=== PATIENT | female | born 2000 | race Hispanic/Latino ===

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

== ENCOUNTER 2019-05-17 23:42 | Emergency (ER) | payer OTHER, SELFPAY ==
[~2019-05-17 23:42] MED LIST: Iopamidol-370 76% 500 ML 1 ML ONE
[2019-05-18] MEDS ORDERED: Adacel (T-DAP) 0.5 ML SYRINGE ONE (00:03)
[2019-05-18] MEDS ORDERED: Fentanyl 100 MCG/2 ML VIAL ONE (00:03)
[2019-05-18 00:25] LABS: #Eosinphils 0.2 thou/uL (0.0-0.7); #Lymphocytes 2.1 thou/uL (1.20-3.40); #Monocytes 0.7 thou/uL (0.11-0.59); %Basophils 0.4 % (0.0-1.0); %Eosinophils 2.3 % (0.0-10.0); %Lymphocytes 26.5 % (28.0-48.0); %Monocytes 8.5 % (0.0-4.0); %Neutrophils 62.3 % (31.0-61.0); Hemoglobin 14.8 g/dL (12.0-16.0); Mean Corpuscular Hemoglobin 30.9 pg (25.0-35.0); Mean Corpuscular Volume 90.9 fL (78.0-98.0); Mean Platelet Volume 8.2 fL (7.4-10.4); Platelet Count 239 thou/uL (130-400); RBC Distribution Width 11.9 % (11.5-14.5); Red Blood Cell (RBC) Count 4.79 mill/uL (4.00-5.20)
[2019-05-18 00:31] LABS: BHCG - Serum Negative (NEGATIVE); Pregs Control Background? CLEAR/WHITE (CLR/WHITE); Pregs Control Bar Appear? YES (CONTROL BAR)
[2019-05-18 00:49] LABS: ALT (SGPT) 18 U/L (8-55); AST (SGOT) 22 U/L (5-30); Albumin 4.4 g/dL (3.5-5.0); Alkaline Phosphatase 124 U/L (40-100); Anion Gap 11 mmol/L (10-20); BUN (Urea Nitrogen) 11 mg/dL (8.4-21.0); Bilirubin, Total 0.4 mg/dL (0.2-1.2); Calc. Creatinine Clearance 0 mL/min (70-130); Carbon Dioxide 26 mmol/L (22-29); Chloride 107 mmol/L (98-107); Estimated GFR-MDRD Greater than 90; Glucose 92 mg/dL (70-105); Potassium 3.9 mmol/L (3.5-5.1); Protein, Total 7.4 g/dL (6.0-8.3); Sodium 140 mmol/L (136-145)
[2019-05-18] MEDS ORDERED: Morphine 4 MG/ML VIAL ONE (01:35)
--- NOTE | 2019-05-18 08:02 | CT ---
PRELIMINARY REPORT/[facility]/EMERGENCY AFTER HOURS PROCEDURE: PROCEDURE INFORMATION: Exam: CT Head Without Contrast Exam date and time: 05/18/2019 1:03 AM Clinical history: 18 years old, female; Injury or trauma; Initial encounter; Abrasion; Not specified; Patient HX: Er 14. Fall from 6-7 carpeted stairs onto tile floor; Pos loc, loc 20 minutes TECHNIQUE: Imaging protocol: Computed tomography of the head without contrast. COMPARISON: No relevant prior studies available. FINDINGS: Brain: No acute intracranial hemorrhage or mass effect. No definite acute infarct by CT. Ventricles: Ventricle size is normal for age. Bones/joints: No definite acute skull fracture. Sinuses: Included paranasal sinuses are essentially clear. Mastoid air cells: No significant acute finding. IMPRESSION: 1. No acute intracranial hemorrhage or mass effect. 2. Other findings discussed above. Thank you for allowing us to participate in the care of your patient. Dictated and Authenticated by: Rafael Montes De Oca MD 05/18/2019 1:27 AM Central Time ([place] & [place]) FINAL REPORT HEAD CT WITHOUT CONTRAST: HISTORY: Trauma. Pain. Injury. FINDINGS: This report is in agreement with the preliminary report by [facility]. No intracranial posttraumatic sequel ae. POS: [facility]
--- NOTE | 2019-05-18 08:19 | CT ---
PRELIMINARY REPORT/[facility]/EMERGENCY AFTER HOURS PROCEDURE: PROCEDURE INFORMATION: Exam: CT Cervical Spine Without Contrast Exam date and time: 05/18/2019 1:02 AM Clinical history: 18 years old, female; Injury or trauma; Initial encounter; Abrasion; Patient HX: Er 14. Fall from 6-7 carpeted stairs onto tile floor; Pos loc, loc 20 minutes TECHNIQUE: Imaging protocol: Computed tomography images of the cervical spine without contrast. COMPARISON: No relevant prior studies available. FINDINGS: Vertebrae: On axial CT images, no definite acute fracture is visible. Sagittal and coronal reconstruc tions show no fracture or subluxation. Discs/Spinal canal/Neural foramina: No definite/significant disc herniation by CT, MRI could be more sensitive if clinically indicated. Lungs: No significant acute abnormality in the upper lungs. IMPRESSION: 1. No definite acute fracture or subluxation by CT. 2. Other findings discussed above. Thank you for allowing us to participate in the care of your patient. Dictated and Authenticated by: Rafael Montes De Oca MD 05/18/2019 1:32 AM Central Time ([place] & [place]) FINAL REPORT CT CERVICAL SPINE WITHOUT CONTRAST: COMPARISON: 03/16/2018. HISTORY: Fall. FINDINGS: This report is in agreement with the preliminary report by [facility]. No evidence of fracture or dislocati on. POS: [facility]
--- NOTE | 2019-05-18 08:55 | RAD ---
Exam:3 views right shoulder HISTORY: Trauma. Pain. Fall. COMPARISON: None FINDINGS: Glenohumeral joint space is preserved. No fracture or dislocation. Visualized right ribs ar e unremarkable. IMPRESSION: No fracture.
--- NOTE | 2019-05-18 08:55 | RAD ---
Exam:3 views right ankle HISTORY: Pain. Trauma. COMPARISON: 08/13/2012 FINDINGS: No fracture, cortical irregularity or periosteal reaction. Joint spaces are preserved. Age- appropriate growth plates. No significant soft tissue swelling. IMPRESSION: No fracture.
--- NOTE | 2019-05-18 08:56 | RAD ---
Exam:Right knee 4 views HISTORY: Pain. Fall. Trauma. COMPARISON: None FINDINGS: Joint spaces are preserved. No joint effusion. No fracture or malalignment. IMPRESSION: No fracture.
--- NOTE | 2019-05-18 10:32 | CT ---
PRELIMINARY REPORT/[facility]/EMERGENCY AFTER HOURS PROCEDURE: PROCEDURE INFORMATION: Exam: CT Chest With Contrast Exam date and time: 05/18/2019 1:06 AM Clinical history: 18 years old, female; Injury or trauma; Initial encounter; Abrasion; Patient HX: Er 14. Fall from 6-7 carpeted stairs onto tile floor; Pos loc, loc 20 minutes TECHNIQUE: Imaging protocol: Computed tomography of the chest with intravenous contrast. COMPARISON: No relevant prior studies available. FINDINGS: Lungs: No significant parenchymal lung opacity or mass. Pleural space: No pleural fluid/blood. No pneumothorax. Heart: No significant pericardial effusion. Mediastinum: No evidence for pneumomediastinum. No evidence of mediastinal hematoma. Aorta: No definite thoracic aortic injury by CT. Lymph nodes: Couple of borderline prominent axillary lymph nodes bilaterally. Bones/joints: No definite acute fracture visible by CT. Sagittal and coronal reconstructions of the t horacic spine show no definite acute compression deformity or subluxation. Soft tissues: No significant acute abnormality. IMPRESSION: 1. No definite acute traumatic injury. 2. No pneumothorax. 3. No pleural fluid/blood. 4. Other findings discussed above. 5. Please see subsequent CT Abdomen/Pelvis report for evaluation of the abdomen and pelvis. Thank you for allowing us to participate in the care of your patient. Dictated and Authenticated by: Rafael Montes De Oca MD 05/18/2019 1:52 AM Central Time ([place] & [place]) FINAL REPORT CHEST CT WITH CONTRAST ABDOMEN CT WITH CONTRAST PELVIC CT WITH CONTRAST LIMITED CT THORACIC AND LUMBAR SPINE: HISTORY: The patient fell. Posttraumatic pain. FINDINGS: This report is in agreement with the preliminary report by [facility]. No posttraumatic change of the chest , abdomen, or pelvis. Additional findings as detailed in the preliminary report by [facility]. POS: [facility]
== END 2019-05-18 03:50 | disposition home or self-care (01) ==
LOC: ERS 23:42
DX: S00.03XA Contusion of scalp, initial encounter (principal); S80.812A Abrasion, left lower leg, initial encounter; S80.811A Abrasion, right lower leg, initial encounter; F41.9 Anxiety disorder, unspecified; F41.0 Panic disorder [episodic paroxysmal anxiety]; W10.9XXA Fall (on) (from) unspecified stairs and steps, initial encounter
CPT/HCPCS: 36415; 70450; 71260; 72125; 74177; 80053; 84703; 85025; 90471; 90715; 96361; 96374; 96375; J2270; J3010; Q9967

== ENCOUNTER 2019-09-13 17:06 | Emergency (ER) | payer BC, SELFPAY ==
[~2019-09-13 17:06] MED LIST changes: +Iopamidol 370 76% 100 ML VIAL ONE; -Iopamidol-370 76% 500 ML 1 ML ONE
[2019-09-13 17:39] LABS: #Basophils 0.1 thou/uL (0.0-0.2); #Eosinphils 0.1 thou/uL (0.0-0.7); #Lymphocytes 2.6 thou/uL (1.20-3.40); #Monocytes 0.5 thou/uL (0.11-0.59); #Neutrophils 4.9 thou/uL (1.40-6.50); %Basophils 0.7 % (0.0-1.0); %Eosinophils 1.5 % (0.0-10.0); %Lymphocytes 31.6 % (28.0-48.0); %Monocytes 6.4 % (0.0-4.0); %Neutrophils 59.9 % (31.0-61.0); Hemoglobin 13.6 g/dL (12.0-16.0); Mean Corpuscular HGB CONC 34.6 g/dL (32.0-36.0); Mean Corpuscular Hemoglobin 30.9 pg (25.0-35.0); Mean Corpuscular Volume 89.2 fL (78.0-98.0); Mean Platelet Volume 7.8 fL (7.4-10.4); Platelet Count 243 thou/uL (130-400); White Blood Cell (WBC) Count 8.2 thou/uL (4.8-10.8)
[2019-09-13] MEDS ORDERED: Ketorolac Tromethamine 30 MG/ML VIAL ONE (17:42)
[2019-09-13] MEDS ORDERED: Ondansetron PF 4 MG/2 ML Vial ONE (17:42)
[2019-09-13] MEDS ORDERED: Morphine 4 MG/ML VIAL ONE (17:42)
[2019-09-13] MEDS ORDERED: Acetaminophen 500 MG TAB ONE (17:42)
--- NOTE | 2019-09-13 17:52 | RAD ---
Portable frontal chest radiograph: 09/13/2019 COMPARISON: 10/23/2017 HISTORY: Pain FINDINGS: Lungs are clear. Heart and mediastinal contours appear within normal limits. IMPRESSION: No acute findings.
[2019-09-13 17:53] LABS: BHCG - Serum Negative (NEGATIVE); Pregs Control Background? CLEAR/WHITE (CLR/WHITE); Pregs Control Bar Appear? YES (CONTROL BAR)
--- NOTE | 2019-09-13 17:53 | RAD ---
4 views left knee: 09/13/2019 COMPARISON: None HISTORY: Injury, trauma, pain FINDINGS: There are eccentric lesions of mixed sclerosis and lucency involving the distal femoral sha ft and proximal tibial shaft suggesting fibroxanthomata. No knee joint effusion. No displaced fracture or evidence of dislocation. IMPRESSION: No acute findings. Incidental findings as detailed above.
[2019-09-13 18:01] LABS: ALT (SGPT) 16 U/L (8-55); AST (SGOT) 20 U/L (5-30); Albumin 4.1 g/dL (3.5-5.0); Alkaline Phosphatase 118 U/L (40-100); Anion Gap 13 mmol/L (10-20); BUN (Urea Nitrogen) 10 mg/dL (8.4-21.0); Bilirubin, Total 0.4 mg/dL (0.2-1.2); Calc. Creatinine Clearance 0 mL/min (70-130); Carbon Dioxide 23 mmol/L (22-29); Chloride 107 mmol/L (98-107); Estimated GFR-MDRD Greater than 90; Glucose 84 mg/dL (70-105); Potassium 3.6 mmol/L (3.5-5.1); Protein, Total 7.1 g/dL (6.0-8.3); Sodium 139 mmol/L (136-145)
--- NOTE | 2019-09-13 18:25 | CT ---
Head CT without contrast 09/13/2019: Comparison: None HISTORY: Injury, trauma, pain TECHNIQUE: Axial CT imaging at 5 mm intervals from vertex through skull base without contrast FINDINGS: The imaged paranasal sinuses/mastoid air cells are well aerated. No displaced calvarial fra cture. No intracranial hemorrhage, midline shift, mass effect, or ventricular enlargement. IMPRESSION: No intracranial hemorrhage or displaced calvarial fracture.
--- NOTE | 2019-09-13 18:30 | CT ---
CT of thecervical spine: 09/13/2019 COMPARISON:05/18/2019 HISTORY:Injury, trauma, pain TECHNIQUE: Serial axial CT imaging at2.5 mm intervals from theskull base through lung apices without contrast. Coronal and sagittal reformatted imaging obtained Findings:The visualized lung apices are unremarkable. The dens, occipital condyles, C1 ring, atlantoaxial interspace, craniocervical junction, and cervicot horacic junction appear intact. There is straightening of the normal cervical lordosis. Cervical vertebral body height and alignment appears normal. No prevertebral soft tissue swelling. No displaced fracture or evidence of dislocation is seen. Impression:No acute osseous abnormality.
--- NOTE | 2019-09-13 18:39 | CT ---
CT of abdomen, pelvis, and lumbar spine: 09/13/2019 COMPARISON: None HISTORY: Injury, trauma, pain TECHNIQUE: Axial CT imaging at 5 mm intervals from lung bases through pubic symphysis with IV contras t. Coronal and sagittal reformatted imaging of the abdomen, pelvis, and lumbar spine provided. FINDINGS: The visualized lung bases appear grossly unremarkable. No free intraperitoneal air or fluid is seen. The liver, spleen, gallbladder, pancreas, adrenal glands, and kidneys demonstrate no acute findings. Limited evaluation of the bowel without oral contrast media demonstrates no inflammatory change or evidence of obstruction. The vascular structures of the abdomen/pelvis appear patent. No abdominal or pelvic lymphadenopathy. Extraspinal osseous structures of the abdomen/pelvis demonstrate no acute findings. Neither hip is di slocated. Inferior and superior pubic rami appear intact bilaterally. The pubic symphysis and bilateral sacroiliac joints appear grossly unremarkable. No sacral fracture noted. There is distention of the urinary bladder. Lumbar vertebral body height and alignment appears within normal limits. No acute lumbar spine fractu re or dislocation IMPRESSION: No acute findings.
== END 2019-09-13 19:40 | disposition home or self-care (01) ==
LOC: ERS 17:06
DX: S06.0X0A Concussion without loss of consciousness, initial encounter (principal); S80.02XA Contusion of left knee, initial encounter; F41.9 Anxiety disorder, unspecified; V89.2XXA Person injured in unspecified motor-vehicle accident, traffic, initial encounter
CPT/HCPCS: 36415; 70450; 71045; 72125; 74177; 80053; 84703; 85025; 96361; 96374; 96375; J1885; J2270; J2405; Q9967

== ENCOUNTER 2020-01-07 12:37 | Emergency (ER) | payer BC, OTHER ==
[2020-01-08 14:32] LABS: SARS-CoV-2 MS2 Positive; SARS-CoV-2 N Gene Positive; SARS-CoV-2 S Gene Positive; SARS-CoV-2 orf1ab Positive
== END 2020-01-07 13:25 | disposition home or self-care (01) ==
LOC: ERS 12:37
DX: U07.1 COVID-19 (principal); F41.0 Panic disorder [episodic paroxysmal anxiety]
CPT/HCPCS: 87635; 99283; U0003

== ENCOUNTER 2020-03-25 10:11 | Emergency (ER) | payer BC, OTHER ==
[2020-03-25 11:07] LABS: BHCG - Serum Negative (NEGATIVE); Pregs Control Background? CLEAR/WHITE (CLR/WHITE); Pregs Control Bar Appear? YES (CONTROL BAR)
--- NOTE | 2020-03-25 11:36 | RAD ---
RIGHT KNEE 4 VIEWS: Date: 03/25/2020 INDICATION: History of fall with right knee pain. COMPARISON: 05/18/2019. FINDINGS: No acute fracture or subluxation is evident. No joint capsular distention is evident. No appreciable change is seen from comparison dated 05/18/2019. IMPRESSION: No acute osseous abnormality. POS: [facility]
--- NOTE | 2020-03-25 11:52 | CT ---
Head CT without contrast 03/25/2020: COMPARISON: 09/13/2019 HISTORY: Seizures following a fall, loss of consciousness TECHNIQUE: Axial CT imaging at 5 mm intervals from vertex through skull base without contrast FINDINGS: The visualized paranasal sinuses and mastoid air cells are well-aerated. No displaced geovanny rial fracture. No intracranial hemorrhage, midline shift, mass effect, or ventricular enlargement. IMPRESSION: No acute findings.
--- NOTE | 2020-03-25 11:58 | CT ---
CT of thecervical spine: 03/25/2020 COMPARISON:09/13/2019 HISTORY:Injury, trauma, pain TECHNIQUE: Serial axial CT imaging at2.5 mm intervals from theskull base through the lung apices with out contrast. Coronal and sagittal reformatted imaging obtained Findings:The C1 ring, occipital condyles, dens, C1-2 articulation, craniocervical junction, and cervi cothoracic junction demonstrate no acute findings. Cervical vertebral body height and alignment appears within normal limits. No prevertebral soft tissue swelling. No acute fracture or dislocation. The visualized lung apices appear unremarkable. Impression:No acute findings.
--- NOTE | 2020-03-25 12:07 | CT ---
CT of thelumbar spine: 03/25/2020 COMPARISON:06/27/2016 HISTORY:Injury, pain, fall TECHNIQUE: Serial axial CT imaging at2.5 mm intervals from thelower thoracic spine through lower sacr um without contrast. Coronal and sagittal reformatted imaging obtained Findings:Limited assessment of the retroperitoneal structures demonstrates no acute findings. Small c yst/dominant follicle in the left adnexal/ovarian region measures 1.6 cm. Evaluation for central canal and/or neural foraminal stenosis is limited on routine CT. There is partial sacralization of the L5 vertebral body on the left with a left-sided L5-S1 assimilat ion joint. Lumbar vertebral body height and alignment appears within normal limits. There is no osseous cause of significant central canal or neural foraminal stenosis within the lumbar spine. No acute lumbar spine fracture or dislocation is seen. Impression:No acute osseous abnormality.
[2020-03-25] MEDS ORDERED: Ketorolac Tromethamine 30 MG/ML VIAL ONE (12:25)
== END 2020-03-25 12:36 | disposition home or self-care (01) ==
LOC: ERS 10:11
DX: S06.9X1A Unspecified intracranial injury with loss of consciousness of 30 minutes or less, initial encounter (principal); M54.5 Low back pain; M54.2 Cervicalgia; M25.561 Pain in right knee; W10.9XXA Fall (on) (from) unspecified stairs and steps, initial encounter
CPT/HCPCS: 36415; 70450; 72125; 72131; 84703; 96374; J1885

== ENCOUNTER 2020-04-02 12:55 | Emergency (ER) | payer BC, OTHER ==
[2020-04-03 12:07] LABS: SARS-CoV-2 MS2 Positive; SARS-CoV-2 N Gene Negative; SARS-CoV-2 S Gene Negative; SARS-CoV-2 by NAA Not Detected (NotDetected); SARS-CoV-2 orf1ab Negative
== END 2020-04-02 13:38 | disposition home or self-care (01) ==
LOC: ERS 12:55
DX: J02.9 Acute pharyngitis, unspecified (principal); Z20.828 Contact with and (suspected) exposure to other viral communicable diseases
CPT/HCPCS: 87081; 87430; 87635; 99283; U0003

== ENCOUNTER 2020-06-14 10:11 | Observation (INO) | payer BC ==
[~2020-06-14 10:11] MED LIST changes: -Iopamidol 370 76% 100 ML VIAL ONE; +Iopamidol-370 76% 500 ML 1 ML ONE
[2020-06-14 10:58] LABS: #Basophils 0.1 thou/uL (0.0-0.2); #Eosinphils 0.3 thou/uL (0.0-0.7); #Lymphocytes 2.7 thou/uL (1.20-3.40); #Monocytes 0.6 thou/uL (0.11-0.59); #Neutrophils 4.4 thou/uL (1.40-6.50); %Basophils 0.7 % (0.0-1.0); %Eosinophils 4.1 % (0.0-10.0); %Lymphocytes 33.8 % (28.0-48.0); %Monocytes 6.8 % (0.0-4.0); %Neutrophils 54.7 % (31.0-61.0); Hemoglobin 14.7 g/dL (12.0-16.0); Mean Corpuscular HGB CONC 33.7 g/dL (32.0-36.0); Mean Corpuscular Hemoglobin 29.5 pg (25.0-35.0); Mean Corpuscular Volume 87.6 fL (78.0-98.0); Mean Platelet Volume 7.6 fL (7.4-10.4); Platelet Count 270 thou/uL (130-400); RBC Distribution Width 12.3 % (11.5-14.5); Red Blood Cell (RBC) Count 4.99 mill/uL (4.00-5.20); White Blood Cell (WBC) Count 8.1 thou/uL (4.8-10.8)
[2020-06-14 11:06] LABS: Bilirubin Negative (Negative); Blood, Urine 1+ (Negative); Clarity Clear (Clear); Glucose, Urine (Dipstick) Normal (Negative); Ketone, Urine Negative (Negative); Leukocyte Negative Leu/uL (Negative); Nitrite Negative (Negative); Protein, Urine (Dipstick) Negative (Neg-Trace); RBC/HPF 0-3 HPF (0-3); Specific Gravity, Urine 1.011 (1.002-1.036); Squamous Epithelial 0-3 HPF (0-3); Urobilinogen Normal mg/dL (Less than 2); WBC/HPF 0-3 HPF (0-3)
[2020-06-14 11:07] LABS: Bacteria/HPF Rare-Few HPF (None Seen)
[2020-06-14 11:22] LABS: ALT (SGPT) 22 U/L (8-55); AST (SGOT) 22 U/L (5-34); Albumin 4.2 g/dL (3.5-5.0); Alkaline Phosphatase 175 U/L (40-100); Anion Gap 14 mmol/L (10-20); BUN (Urea Nitrogen) 11 mg/dL (7.0-18.7); Bilirubin, Total 0.2 mg/dL (0.2-1.2); Calc. Creatinine Clearance 0 mL/min (70-130); Calcium 9.3 mg/dL (7.8-10.44); Carbon Dioxide 27 mmol/L (22-29); Chloride 102 mmol/L (98-107); Globulin 4.1 g/dL (2.4-3.5); Glucose 94 mg/dL (70-105); Protein, Total 8.3 g/dL (6.0-8.3); Sodium 139 mmol/L (136-145)
[2020-06-14 12:09] LABS: BHCG - Serum Negative (NEGATIVE); Pregs Control Background? CLEAR/WHITE (CLR/WHITE); Pregs Control Bar Appear? YES (CONTROL BAR)
[2020-06-14 12:36] LABS: BHCG - Serum Negative (NEGATIVE); Pregs Control Background? CLEAR/WHITE (CLR/WHITE); Pregs Control Bar Appear? YES (CONTROL BAR)
--- NOTE | 2020-06-14 12:38 | CT ---
CTA Angio Chest W WO Con 06/14/2020 12:20 PM Indication: Walking with dizziness Technique: Multiple CTA images were obtained of the thorax with IV contrast. 3-D rendering: MIP chance nstructed images were created and reviewed. Comparison: Prior CT of the chest, abdomen and pelvis dated May 18, 2019 Findings: Pulmonary arteries: No central or segmental pulmonary embolus is evident. Heart and Aorta: Normal appearing. Mediastinum:Normal appearing. No enlarged lymph nodes. Lungs:There are hazy groundglass airspace opacities bilaterally which can be seen with subsegmental v olume loss. Patient does appear to be somewhat hypoventilated Pleural space: Clear. Upper Abdomen: No acute abnormality. Osseous Structures: No acute osseous abnormality. Soft tissues:No abnormality. Other findings:None. Impression: 1. No central or segmental pulmonary embolus. 2. Hazy groundglass airspace opacities bilaterally are nonspecific but can be seen with subsegmental volume loss. There is the appearance of hypoventilation. There is diffuse pneumonitis could also have a similar appearance.
[2020-06-14 12:43] LABS: Pregnancy Test - Urine (BHCG) Negative (Negative); Pregu Control Background? CLEAR/WHITE (CLR/WHITE); Pregu Control Bar Appear? YES (CONTROL BAR); Specific Gravity 1.011 (1.002-1.036)
[2020-06-14] MEDS ORDERED: cefTRIAXone\\ROCEPHIN 1 GM VIAL ONE (13:32)
[2020-06-14] MEDS ORDERED: Azithromycin 500 MG VIAL ONE (14:13)
[2020-06-14 14:27] LABS: Medtox Reader # READER 1
[2020-06-14 14:30] LABS: Amphetamine Not Detected (NotDetected); Barbiturates Screen Not Detected (NotDetected); Benzodiazepine Screen Not Detected (NotDetected); Cocaine Metabolite Screen Not Detected (NotDetected); Medtox Control Line Valid? VALID (VALID); Methadone Not Detected (NotDetected); Methamphetamine Not Detected (NotDetected); Opiate Screen Not Detected (NotDetected); Oxycodone Screen Not Detected (NotDetected); Phencyclidine (PCP) Not Detected (NotDetected); THC/Cannabinoid Screen Not Detected (NotDetected); Tricyclic Screen Not Detected (NotDetected)
[2020-06-14] MEDS ORDERED: Sodium Chloride 0.9% 1,000 ML IV SCH (15:15)
[2020-06-14] MEDS ORDERED: Azithromycin 500 MG in Sodium Chloride 0.9% 250 ML 250 ML IVPB SCH (15:45)
[2020-06-14 15:47] VITALS: BMI 26.5
[2020-06-14] MEDS ORDERED: Ondansetron PF 4 MG/2 ML Vial IVP PRN (18:01)
[2020-06-14] MEDS ORDERED: Benzonatate 100 MG CAP PO PRN (18:01)
[2020-06-14] MEDS ORDERED: Guaifenesin DM 100-10/5 ML UDCUP PO PRN (18:01)
[2020-06-14] MEDS ORDERED: Ondansetron ODT 4 MG TAB PO PRN (18:01)
[2020-06-14] MEDS ORDERED: Acetaminophen 500 MG TAB PO PRN (18:01)
[2020-06-14] MEDS ORDERED: Albuterol 200 PUFF (6.7GM INHALER) INH PRN (18:09)
[2020-06-14] MEDS: Dexamethasone 20 MG/5 ML VIAL SLOW IVP SCH ×2 (18:49→18:54)
[2020-06-14] MEDS ORDERED: Dexamethasone 10 MG/ML VIAL SLOW IVP SCH (19:00)
--- NOTE | 2020-06-14 19:46 | HP ---
PRIMARY CARE PROVIDER: [facility] [place], [place]. CHIEF COMPLAINT: Cough, shortness of breath, body aches, and syncope. HISTORY OF PRESENT ILLNESS: This is a 19-year-old female, who presents to [facility] Emergency Department after apparently sustaining a syncopal event while at work. The patient described it as blacking out while at work with associated dizziness. The patient is unsure of how long she was actually out, but according to family was only a few seconds. The patient immediately regained normal mental status after the event and was transported to the emergency room for evaluation. The patient admits to a week-long history of chest congestion, general body aches, fatigue, back pain and chills. The patient took [id number] Tylenol and used her home albuterol metered-dose inhaler without specific relief. The patient denied any specific exposure history or known COVID exposure. The patient denied any recent exposure to new prescription medications and states no prior similar episodes. In the emergency room, the patient underwent general evaluation with CT angiogram of the chest showing diffuse infiltrates bilaterally. The patient received IV azithromycin 500 mg in addition to Rocephin 1 g and intravenous normal saline x2 L. The patient apparently refused COVID-19 screening in the emergency room. PAST MEDICAL HISTORY: 1. Anxiety. 2. Question of seasonal allergies. PAST SURGICAL HISTORY: Reviewed and negative. CURRENT MEDICATIONS: Albuterol metered-dose inhaler p.r.n. ALLERGIES: NO KNOWN DRUG ALLERGIES. FAMILY HISTORY: No inheritable diseases per the patient's report. SOCIAL HISTORY: , accompanied by her in the hospital. No alcohol, tobacco, or illicit drug use. Functional of all activities of daily living. REVIEW OF SYSTEMS: CONSTITUTIONAL: Negative for weight loss or gain, ability to conduct usual activities. SKIN: Negative for rash, itching. EYES: Negative for double vision, pain. ENT/MOUTH: Negative for nose bleeding, neck stiffness, pain, tenderness. CARDIOVASCULAR: Negative for palpitations, dyspnea on exertion, orthopnea. RESPIRATORY: Negative for shortness of breath, wheezing, cough, hemoptysis, fever or night sweats. GASTROINTESTINAL: Negative for poor appetite, abdominal pain, heartburn, nausea, vomiting, constipation, or diarrhea. GENITOURINARY: Negative for urgency, frequency, dysuria, nocturia. MUSCULOSKELETAL: Negative for pain, swelling. NEUROLOGIC/PSYCHIATRIC: Negative for anxiety, depression. ALLERGY/IMMUNOLOGIC: Negative for skin rash, bleeding tendency. Otherwise negative except as stated per HPI. PHYSICAL EXAMINATION: VITAL SIGNS: On admission, blood pressure 96/55, pulse 74, respiratory rate 20, temperature 98.3 degrees Fahrenheit, and O2 saturation 100% on room air. GENERAL APPEARANCE: This is a 19-year-old female, alert and oriented x3, pleasant, responsive, in no acute distress. HEENT: Pupils are equal, round, and reactive to light and accommodation. Extraocular muscles are intact. No scleral icterus. No conjunctival injection. Nares patent. OP is clear. Teeth in good repair. NECK: Supple. No cervical adenopathy. No thyromegaly. No carotid bruits. No JVD appreciated. Cervical spine with full active and passive range of motion. No meningeal signs noted. CHEST: Diminished breath sounds in the bases bilaterally. Occasional expiratory wheeze. CARDIOVASCULAR: S1 and S2 without noted murmur, rub, or gallop. ABDOMEN: Rounded, soft, nontender, and nondistended. Bowel sounds are positive in all 4 quadrants. There is no hepatosplenomegaly. No abdominal bruits. No rebound or guarding appreciated. EXTREMITIES: Warm and dry with fair turgor. No clubbing, cyanosis, or asymmetric edema appreciated. Pulses palpable distally at the dorsalis pedis, posterior tibial, and popliteal arteries bilaterally. Capillary refill less than 2 seconds. NEUROLOGIC: Cranial nerves II through XII are grossly intact. No focal or lateralizing signs appreciated. PERTINENT LABORATORY AND X-RAY FINDINGS: Complete metabolic profile within normal limits. Serum beta-hCG negative x2. CBC within normal limits. Urinalysis negative. Urine drug screen dated 06/14/2020, negative. CT angiogram of the chest dated 06/14/2020, showed no evidence for pulmonary embolus. Diffuse bilateral infiltrates noted. EKG dated 06/14/2020, by my interpretation shows sinus mechanism with heart rates in the 80s. Normal axis. No acute ST-T wave changes appreciated. ASSESSMENT AND PLAN: 1. Pneumonia/pneumonitis. The patient will be admitted to the medical floor. Concern for COVID-19 viral infection. Screen with COVID-19 PCR. Placed in isolation status pending results. Continue Zithromax 500 mg IV daily, Decadron 8 mg IV daily, albuterol metered-dose inhaler 2 puffs q.4 hours p.r.n. Add vitamin C and zinc sulfate. 2. Syncopal episode. Suspect secondarily to pneumonia/pneumonitis with associated dehydration. Continue supportive management. Status post 2 L of normal saline. 3. Chest pain. Suspect secondarily to pneumonia/pneumonitis. Continue treatment as outlined in pneumonia/pneumonitis and treat symptomatically. 4. Dehydration. Continue to encourage increased free water intake. Status post 2 L of intravenous normal saline. 5. Prophylaxis. SCDs while in bed. Pepcid 20 mg p.o. b.i.d. 6. Code status: Full. Surrogate medical decision maker is the patient's spouse. Job ID: [id number]
[2020-06-14] MEDS: Famotidine 20 MG TAB PO SCH (21:53)
[2020-06-15 01:36] LABS: SARS-CoV-2 MS2 Positive; SARS-CoV-2 N Gene Negative; SARS-CoV-2 S Gene Negative; SARS-CoV-2 by NAA Not Detected (NotDetected); SARS-CoV-2 orf1ab Negative
[2020-06-15] MEDS: Famotidine 20 MG TAB PO SCH (08:34)
--- NOTE | 2020-06-15 10:03 | PDOC.DS.DS ---
Provider - Provider Date of Admission: 06/14/20 14:47 Date of Discharge: 06/15/20 Admitting Provider: Esvin Nguyen DO Primary Care Physician: [facility] Clinic Course - Hospital Course Hospital Course: The patient is a 19-year-old female with past medical history of anxiety and seasonal allergies who presented to the emergency department after a brief syncopal episode at work. The patient stated that she has been experiencing chest congestion and body aches for the past week. Her COVID-19 test was negative and CT angiogram of the chest revealed no specific findings. Patient was managed with IV fluids and received empiric antibiotics in the ER. Her symptoms resolved within 24 hours and her vital signs were stable on discharge. Resuscitation Status: 06/14/20 17:48 Resuscitation Status Routine Resuscitation Status: FULL: Full Resuscitation - Labs Lab Results: 06/14/20 10:30 06/14/20 10:30 Abnormal Lab Results - Last 48 hrs 06/14/20 10:30: Alkaline Phosphatase 175 H, Globulin 4.1 H, Albumin/Globulin Ratio 1.0 L 06/14/20 10:30: Monocytes % 6.8 H, Monocytes # 0.6 H 06/14/20 10:45: Urine Blood 1+ A Microbiology - Entire Visit 06/14/20 13:30 Venous blood - Left Arm Blood Culture - Preliminary Specimen has been received and culture in progress. No Growth to date. 06/14/20 13:27 Venous blood - Right Arm Blood Culture - Preliminary Specimen has been received and culture in progress. No Growth to date. - Physical Exam Vitals: Vital Signs (12 hours) Temp Pulse Resp BP Pulse Ox 06/15/20 08:30 98.1 F 88 14 107/72 97 06/15/20 05:06 98.1 F 94 18 110/70 97 06/15/20 00:14 98.4 F 84 18 114/75 96 06/14/20 22:30 98.5 F 85 16 112/68 98 Weight Weight 149 lb 14.629 oz Physical Exam: The patient was seen and examined on the day of discharge. Plan - Discharge Medications Home Medications: Medication Instructions Recorded Confirmed Type Albuterol Sulfate [Albuterol 1 inh PO PRN PRN 06/14/20 06/14/20 History Sulfate Hfa] Benzonatate [Tessalon] 100 mg pe PO PRN PRN 06/14/20 06/14/20 History Allergies: No Known Allergies Allergy (Verified 06/14/20 15:23) - Follow up Plan Referrals: [facility] [Primary Care Provider] - Disposition: HOME Quality - Care Measures CORE MEASURES:: N/A
[2020-06-15 12:22] VITALS: BP 105/67; TEMP 98.2
[2020-06-15] MEDS ORDERED: FLU VACC QS2020-21(6MOS UP)/PF 60 MCG/0.5 ML SYRINGE IM ONE (15:45)
[2020-06-15] MEDS ORDERED: Azithromycin 500 MG in Sodium Chloride 0.9% 250 ML 250 ML IVPB SCH (16:00)
--- NOTE | 2020-06-19 10:49 | EKG ---
Test Reason : Blood Pressure : / mmHG Vent. Rate : 082 BPM Atrial Rate : 082 BPM P-R Int : 122 ms QRS Dur : 084 ms QT Int : 372 ms P-R-T Axes : 039 025 021 degrees QTc Int : 434 ms Normal sinus rhythm Normal ECG Confirmed by CARLOS ALBERTO KRISHNA, CAROL Perez ([id number]), manager editorial MAGDALENO FISCHER ([id number]) on 06/19/2020 10:49:13 AM Referred By: Confirmed By:CAROL CARCAMO MD
== END 2020-06-15 11:57 | disposition home or self-care (01) ==
LOC: ERS 10:11 → ONC 14:47 → T4-B 22:26
PROVIDERS: ADMIT Family Medicine; ATTEND Internal Medicine
DX: J18.9 Pneumonia, unspecified organism (principal); R55 Syncope and collapse; F41.9 Anxiety disorder, unspecified; J30.2 Other seasonal allergic rhinitis; E86.0 Dehydration; R09.89 Other specified symptoms and signs involving the circulatory and respiratory systems; Z20.828 Contact with and (suspected) exposure to other viral communicable diseases
CPT/HCPCS: 36415; 71275; 80053; 80306; 81003; 81015; 81025; 84703; 85025; 87040; 87635; 93005; 94760; 96365; 96367; 96375; G0378; J0456; J0696; J1100; J7050; Q9967; U0003

== ENCOUNTER 2021-04-27 15:31 | Emergency (ER) | payer OTHER, SELFPAY | END 2021-04-27 17:20 | disposition home or self-care (01) | LOC: ERS 15:31 | DX: S20.219A Contusion of unspecified front wall of thorax, initial encounter (principal); V49.40XA Driver injured in collision with unspecified motor vehicles in traffic accident, initial encounter | CPT/HCPCS: 99283 ==

== ENCOUNTER 2021-05-06 18:31 | Emergency (ER) | payer SELFPAY ==
[2021-05-07 15:20] LABS: SARS-CoV-2 PCR by NAA Not Detected (NotDetected)
== END 2021-05-06 20:18 | disposition home or self-care (01) ==
LOC: ERS 18:31
DX: J06.9 Acute upper respiratory infection, unspecified (principal); Z20.822 Contact with and (suspected) exposure to COVID-19
CPT/HCPCS: 87081; 87430; 99283; U0003; U0005

== ENCOUNTER 2021-11-23 22:25 | Emergency (ER) | payer OTHER ==
[2021-11-23] MEDS ORDERED: Prochlorperazine 10 MG/2 ML VIAL ONE (23:26)
[2021-11-23] MEDS ORDERED: Ketorolac Tromethamine 30 MG/ML VIAL ONE (23:26)
[2021-11-23] MEDS ORDERED: diphenhydrAMINE 50 MG/ML VIAL ONE (23:26)
[2021-11-23] MEDS ORDERED: Acetaminophen 500 MG TAB ONE (23:26)
[2021-11-23] MEDS ORDERED: Metoclopramide HCl 10 MG/2 ML VIAL ONE (23:28)
== END 2021-11-24 00:55 | disposition home or self-care (01) ==
LOC: ERS 22:25
DX: R55 Syncope and collapse (principal); R51.9 Headache, unspecified
CPT/HCPCS: 71045; 93005; 96365; 96375; J0780; J1200; J1885; J2765

== ENCOUNTER 2021-12-02 04:49 | Emergency (ER) | payer BC, OTHER ==
[2021-12-02] MEDS ORDERED: Ibuprofen 800 MG TAB ONE (05:44)
[2021-12-02] MEDS ORDERED: Acetaminophen 500 MG TAB ONE (05:44)
== END 2021-12-02 06:59 | disposition home or self-care (01) ==
LOC: ERS 04:49
DX: H65.91 Unspecified nonsuppurative otitis media, right ear (principal)
CPT/HCPCS: 99283

== ENCOUNTER 2023-07-02 00:33 | Emergency (ER) | payer SELFPAY ==
[2023-07-02 01:21] LABS: #Eosinphils 0.1 thou/uL (0.0-0.7); #Monocytes 0.8 thou/uL (0.11-0.59); #Neutrophils 12.6 thou/uL (1.40-6.50); %Basophils 0.2 % (0.0-1.0); %Eosinophils 0.8 % (0.0-10.0); %Lymphocytes 14.9 % (21.0-51.0); %Neutrophils 78.8 % (42.0-75.0); Hematocrit 40.7 % (36.0-47.0); Hemoglobin 13.8 g/dL (12.0-16.0); Mean Corpuscular HGB CONC 33.9 g/dL (32.0-36.0); Mean Corpuscular Hemoglobin 28.3 pg (27.0-31.0); Mean Corpuscular Volume 83.4 fl (78.0-98.0); Mean Platelet Volume 9.9 fL (7.4-10.4); Platelet Count 306 10x3/uL (130-400); RBC Distribution Width 14.5 % (11.5-14.5); Red Blood Cell (RBC) Count 4.88 mill/uL (4.20-5.40); White Blood Cell (WBC) Count 15.9 10x3/uL (4.8-10.8)
[2023-07-02 01:42] LABS: Bacteria/HPF None Seen HPF (None Seen); Bilirubin Negative (Negative); Blood, Urine Negative (Negative); CAUTI Indications for Culture Pelvic or flank pain; Clarity Clear (Clear); Glucose, Urine (Dipstick) Normal (Negative); Ketone, Urine Negative (Negative); Leukocyte Negative Leu/uL (Negative); Nitrite Negative (Negative); Protein, Urine (Dipstick) Negative (Neg-Trace); RBC/HPF 0-3 HPF (0-3); Specific Gravity, Urine 1.009 (1.002-1.036); Squamous Epithelial None Seen HPF (0-3); Urobilinogen Normal mg/dL (Less than 2); WBC/HPF 0-3 HPF (0-3)
[2023-07-02 01:43] LABS: ALT (SGPT) 20 U/L (8-55); AST (SGOT) 18 U/L (5-34); Albumin 4.2 g/dL (3.5-5.0); Alkaline Phosphatase 174 U/L (40-110); Anion Gap 13 mmol/L (10-20); BUN (Urea Nitrogen) 9 mg/dL (7.0-18.7); Bilirubin, Total 0.4 mg/dL (0.2-1.2); Calc. Creatinine Clearance 0 mL/min (70-130); Calcium 8.6 mg/dL (7.8-10.44); Carbon Dioxide 24 mmol/L (22-29); Chloride 102 mmol/L (98-107); Estimated GFR 117; Globulin 4.1 g/dL (2.4-3.5); Glucose 88 mg/dL (70-105); Potassium 3.7 mmol/L (3.5-5.1); Protein, Total 8.3 g/dL (6.0-8.3); Sodium 135 mmol/L (136-145)
[2023-07-02 01:44] LABS: Urine Culture Reflex No No
[2023-07-02 01:45] LABS: Pregnancy Test - Urine (BHCG) Negative (Negative); Pregu Control Background? CLEAR/WHITE (CLR/WHITE); Pregu Control Bar Appear? YES (CONTROL BAR); Specific Gravity 1.009 (1.002-1.036)
[2023-07-02] MEDS ORDERED: Ondansetron PF 4 MG/2 ML Vial ONE (02:06)
[2023-07-02] MEDS ORDERED: Sodium Chloride 0.9% 100 ML ONE (02:06)
[2023-07-02] MEDS ORDERED: Piperacillin/Tazobactam 4.5 GM VIAL ONE (02:06)
[2023-07-02] MEDS ORDERED: Morphine 4 MG/ML VIAL ONE (02:06)
[2023-07-02] MEDS ORDERED: Iopamidol 370 76% 100 ML VIAL ONE (09:14)
== END 2023-07-02 05:59 | disposition home or self-care (01) ==
LOC: ERS 00:33
DX: R10.10 Upper abdominal pain, unspecified (principal)
CPT/HCPCS: 36415; 71045; 74177; 76705; 80053; 81001; 81025; 83605; 83690; 85025; 87040; 87086; 93005; 96361; 96365; 96375; J2270; J2405; J2543; J3490; Q9967